=== PATIENT | female | born 1965 | race Caucasian/White ===

== ENCOUNTER 2017-09-12 11:39 | Emergency (ER) | payer SELFPAY ==
--- NOTE | 2017-09-12 11:56 | EKG REPORT ---
SEVERITY:- NORMAL ECG - SINUS RHYTHM : Confirmed by: Xavi Alonzo 12-Sep-2017 11:55:55
[2017-09-12 12:32] VITALS: BP 123/75
--- NOTE | 2017-09-12 13:32 | ER Document Report ---
ED Cardiac - General Chief Complaint: Chest Pain Stated Complaint: CHEST PAIN Time Seen by Provider: 09/12/17 13:27 Mode of Arrival: Ambulatory Information source: Patient Notes: Patient states that she was at the [facility] when she got the sudden onset of severe central chest pain that radiated to her left side. It made her slightly sweaty. No significant shortness of breath or nausea. She states it lasted about 1 hour. She also stated that after the pain started she tried to eat and felt like food was sticking. The pain was constant and moderate to severe. Nothing appear to make it better or worse. She denies any previous cardiac history. She denies any previous cardiac evaluations. TRAVEL OUTSIDE OF THE [place] IN LAST 30 DAYS: No - Related Data Allergies/Adverse Reactions: acetaminophen [From Percocet] Allergy (Intermediate, Verified 09/12/17 11:40) Generalized Itching oxycodone [From Percocet] Allergy (Intermediate, Verified 09/12/17 11:40) Generalized Itching Home Medications: Current Home Medications Bupropion HCl [Wellbutrin Xl 150 mg 24hr Tablet] 150 mg PO DAILY 09/12/17 [ History] Dextroamphetamine/Amphetamine [Adderall 20 mg Tablet] 20 mg PO 09/12/17 [History ] Hydroxyzine Pamoate [Hydroxyzine Pamoate] 50 mg PO PRN PRN 09/12/17 [History] Lurasidone HCl [Latuda] 20 mg PO PRN PRN 09/12/17 [History] Past Medical History - General Information source: Patient - Social History Smoking Status: Former Smoker Chew tobacco use (# tins/day): No Frequency of alcohol use: None Drug Abuse: None Family History: Reviewed & Not Pertinent Patient has suicidal ideation: No Patient has homicidal ideation: No Renal/ Medical History: Denies: Hx Peritoneal Dialysis Review of Systems - Review of Systems Constitutional: denies: Chills, Fever Cardiovascular: Chest pain. denies: Palpitations Respiratory: denies: Cough, Short of breath Gastrointestinal: denies: Abdominal pain, Diarrhea -: Yes All other systems reviewed and negative Physical Exam - Vital signs Vitals: Temp Pulse Resp BP Pulse Ox 98.4 F 65 16 123/75 98 09/12/17 12:24 09/12/17 12:24 09/12/17 12:24 09/12/17 12:24 09/12/17 12:24 Interpretation: Normal - General General appearance: Appears well, Alert - HEENT Head: Normocephalic, Atraumatic Eyes: Normal Pupils: PERRL - Respiratory Respiratory status: No respiratory distress Chest status: Nontender Breath sounds: Normal Chest palpation: Normal - Cardiovascular Rhythm: Regular Heart sounds: Normal auscultation Murmur: No - Abdominal Inspection: Normal Distension: No distension Bowel sounds: Normal Tenderness: Nontender Organomegaly: No organomegaly - Back Back: Normal, Nontender - Extremities General upper extremity: Normal inspection, Nontender, Normal color, Normal ROM , Normal temperature General lower extremity: Normal inspection, Nontender, Normal color, Normal ROM , Normal temperature, Normal weight bearing. No: Tanner's sign - Neurological Neuro grossly intact: Yes Cognition: Normal Orientation: AAOx4 [place] Coma Scale Eye Opening: Spontaneous Daniele Coma Scale Verbal: Oriented [place] Coma Scale Motor: Obeys Commands Daniele Coma Scale Total: 15 Speech: Normal Motor strength normal: LUE, RUE, LLE, RLE Sensory: Normal - Psychological Associated symptoms: Normal affect, Normal mood - Skin Skin Temperature: Warm Skin Moisture: Dry Skin Color: Normal Course - Re-evaluation Re-evalutation: 09/12/17 18:01 Patient did not want any laboratories drawn or x-ray taken. She asked to be able to sign out AMA. I explained to her the risk and benefits and both her and her stated that they would like to sign out AGAINST MEDICAL ADVICE. Patient was aware of the risks and benefits as was her . I explained to them that the risks were that this could be heart disease or other pathology that would not be evident without further evaluation, observation, laboratory test x-rays, and examination. I explained to them that these missed diagnoses could prove to have fatal consequences or lead to permanent disability. They stated they understood but still wanted to leave AGAINST MEDICAL ADVICE. - Vital Signs Vital signs: Temp Pulse Resp BP Pulse Ox 98.4 F 65 16 123/75 98 09/12/17 12:24 09/12/17 12:24 09/12/17 12:24 09/12/17 12:24 09/12/17 12:24 - EKG Interpretation by Me EKG shows normal: Sinus rhythm Rate: Normal Rhythm: NSR [place]/QRS: No: Right axis deviation, Left axis deviation, Bifasicular block Discharge - Discharge Clinical Impression: Chest pain at rest Disposition: AGAINST MEDICAL ADVICE Instructions: Chest Pain of Unclear Cause ([facility]) Additional Instructions: Your welcome to return at any time if you have further problems Your blood pressure is mildly elevated. Please have this rechecked by your doctor within 1 week. Please call your doctor as soon as possible for an evaluation of your chest pain. Since you were not able to stay today for further evaluation of your chest pain I recommend that you have your family physician do an evaluation as soon as possible that may include a cardiac stress test. Forms: Elevated Blood Pressure, Return to Work Referrals: ROSS NELSON MD [COMMUNITY BASED STAFF] - Follow up as needed (as soon as possible)
== END 2017-09-12 13:31 | disposition left against medical advice (07) ==
LOC: ER 11:39
DX: R07.9 Chest pain, unspecified (principal); Z88.5 Allergy status to narcotic agent; Z87.891 Personal history of nicotine dependence; Z53.20 Procedure and treatment not carried out because of patient's decision for unspecified reasons
CPT/HCPCS: 93005; 93010; 99284